=== PATIENT | female | born 1930 | race African-American/Black ===

== ENCOUNTER 2017-10-20 09:10 | Emergency (ER) | payer OTHER ==
[~2017-10-20] VITALS: Ht 162.6 cm; Wt 72.6 kg
[~2017-10-20 09:10] MED LIST: COUMADIN7.5 MG; DIGOXIN125 MCG; DOLOGEN CAPLET1 TAB PO; LANOXIN0.25 MG PO; TELMISARTAN80 MG
== END 2017-10-20 12:02 | disposition home or self-care (01) ==
LOC: ER 09:10
DX: R53.1 Weakness (principal); R42 Dizziness and giddiness; F41.8 Other specified anxiety disorders

== ENCOUNTER 2017-10-24 16:50 | Emergency (ER) | payer OTHER ==
[~2017-10-24] VITALS: Ht 162.6 cm; Wt 74.8 kg
[2017-10-24] MEDS ORDERED: NORVASC2.5 MG (17:06)
== END 2017-10-24 21:21 | disposition home or self-care (01) ==
LOC: ER 16:50
DX: M75.92 Shoulder lesion, unspecified, left shoulder (principal); I10 Essential (primary) hypertension

== ENCOUNTER 2017-12-01 10:19 | Emergency (ER) | payer OTHER ==
[~2017-12-01] VITALS: Ht 162.6 cm; Wt 72.6 kg
[~2017-12-01 10:19] MED LIST changes: +NORVASC2.5 MG
== END 2017-12-01 18:36 | disposition home or self-care (01) ==
LOC: ER 10:19 → CPU-OBS 10:50 → ER 10:50
DX: I16.0 Hypertensive urgency (principal); I10 Essential (primary) hypertension; R07.89 Other chest pain; M54.2 Cervicalgia

== ENCOUNTER 2018-01-05 02:14 | Emergency (ER) | payer OTHER ==
[~2018-01-05] VITALS: Ht 162.6 cm; Wt 74.8 kg
== END 2018-01-05 08:48 | disposition home or self-care (01) ==
LOC: ER 02:14 → CPU-OBS 02:15 → ER 08:48
DX: R07.89 Other chest pain (principal); R00.2 Palpitations

== ENCOUNTER 2018-05-07 16:11 | Emergency (ER) | payer OTHER ==
[~2018-05-07] VITALS: Ht 167.6 cm; Wt 74.8 kg
== END 2018-05-07 20:42 | disposition home or self-care (01) ==
LOC: ER 16:11
DX: L03.115 Cellulitis of right lower limb (principal); B96.89 Other specified bacterial agents as the cause of diseases classified elsewhere

== ENCOUNTER 2018-07-12 05:23 | Emergency (ER) | payer OTHER ==
[~2018-07-12] VITALS: Ht 165.1 cm; Wt 77.1 kg
[2018-07-12] MEDS ORDERED: NORVASC2.5 M1 (05:34)
== END 2018-07-12 13:01 | disposition home or self-care (01) ==
LOC: ER 05:23
DX: R00.2 Palpitations (principal)

== ENCOUNTER 2018-10-23 10:28 | Inpatient (IN) | payer OTHER ==
[~2018-10-23] VITALS: Ht 152.4 cm; Wt 72.6 kg
[~2018-10-23 10:28] MED LIST changes: +NORVASC2.5 M1
[2018-10-26] MEDS ORDERED: FUROSEMIDE20 MG PO (08:27)
[2018-10-26] MEDS ORDERED: HYDRALAZINE HCL50 MG PO (08:27)
== END 2018-10-26 11:44 | disposition home or self-care (01) | DRG 292 ==
LOC: ER 10:28 → ICU-2 14:33 → SEC-K 10-25 11:17 → MEDJ 10-25 12:29
PROVIDERS: ADMIT Internal Medicine
PROC: 3E0F7GC Introduction of Other Therapeutic Substance into Respiratory Tract, Via Natural or Artificial Opening (ICD-10-PCS; principal; 2018-10-23)
PROC: B246ZZZ Ultrasonography of Right and Left Heart (ICD-10-PCS; 2018-10-23)
DX: I11.0 Hypertensive heart disease with heart failure (principal); I16.1 Hypertensive emergency; I50.23 Acute on chronic systolic (congestive) heart failure